=== PATIENT | female | born 1940 | race Caucasian/White ===

== ENCOUNTER → 2023-12-31 10:01 | Outpatient (REF) | payer MEDICARE, BC, SELFPAY ==
[2023-12-31 13:19] LABS: ALT (SGPT) 15 U/L (0-35); AST (SGOT) 21 U/L (14-36); Albumin 4.1 g/dl (3.5-5.0); Alkaline Phosphatase 92 U/L (38-126); Blood Urea Nitrogen 22 mg/dl (7-17); Calcium 9.4 mg/dl (8.4-10.2); Carbon Dioxide 26 mmol/L (22-30); Chloride 105 mmol/L (98-107); Glucose 189 mg/dl (70-99); HDL Cholesterol 73 mg/dl; LDL Cholesterol, Calculated 106 mg/dl; Sodium 136 mmol/L (135-145); Total Cholesterol 199 mg/dl (50-199); Triglyceride 100 mg/dl (10-149); Very Low Density Lipoprotein 20 mg/dl (0-30); eGFR > 60.00
[2023-12-31 13:29] LABS: Glycohemoglobin (HgbA1c) 8.2 % (4.0-5.6)
[2023-12-31 16:21] LABS: Microalbumin, Random Urine 5.4 mg/dl (0.6-1.7); Microalbumin/creatinine Ratio 56.4 mg/g
== END ==
LOC: HWLAB 10:01
PROVIDERS: ATTENDING PHYSICIAN Nurse Practitioner Family
DX: E11.21 Type 2 diabetes mellitus with diabetic nephropathy (principal); E78.2 Mixed hyperlipidemia; I10 Essential (primary) hypertension; E66.3 Overweight; F32.5 Major depressive disorder, single episode, in full remission
CPT/HCPCS: 36415; 80053; 80061; 82043; 82570; 83036

== ENCOUNTER → 2024-05-12 09:42 | Outpatient (REF) | payer MEDICARE, BC, SELFPAY ==
[2024-05-12 11:10] LABS: % Basophils 0.4 % (0-2); % Immature Granulocytes 0.2 % (0-0.5); % Lymphocytes 27.4 % (20.5-51.1); Absolute Eosinophils 0.1 10^3/uL (0-0.7); Absolute Lymphocytes 1.4 10^3/uL (1.2-3.4); Absolute Monocytes 0.4 10^3/uL (0.1-0.6); Absolute Neutrophils 3.4 10^3/uL (1.4-6.5); Hematocrit 40.6 % (37.0-47.0); Hemoglobin 14.2 g/dL (12.0-16.0); Mean Corpuscular Hgb 31.3 pg (27.0-31.0); Mean Corpuscular Volume 89.6 fL (81.0-99.0); Mean Platelet Volume 10.4 fL (7.4-10.4); Nucleated Red Blood Cells % 0 %; Platelet Count 211 10^3/uL (130-400); Red Blood Cell Count 4.53 10^6/uL (4.20-5.40); Red Cell Dist. Width 13.3 % (11.5-14.5); White Blood Cell Count 5.3 10^3/uL (4.8-10.8)
[2024-05-12 11:25] LABS: Blood Urea Nitrogen 23 mg/dl (7-17); Calcium 9.8 mg/dl (8.4-10.2); Carbon Dioxide 26 mmol/L (22-30); Chloride 104 mmol/L (98-107); Glucose 145 mg/dl (70-99); Potassium 4.1 mmol/L (3.5-5.1); Sodium 139 mmol/L (135-145); eGFR > 60.00
== END ==
LOC: REG 09:42
PROVIDERS: ATTENDING PHYSICIAN Orthopaedic Surgery; FAMILY PHYSICIAN Family Medicine
DX: Z01.818 Encounter for other preprocedural examination (principal)
CPT/HCPCS: 36415; 80048; 85025; 93005

== ENCOUNTER → 2024-07-05 10:22 | Outpatient (REF) | payer MEDICARE, BC, SELFPAY ==
[2024-07-05 12:17] LABS: % Basophils 0.4 % (0-2); % Eosinophils 0.7 % (0-6); % Immature Granulocytes 0.2 % (0-0.5); % Lymphocytes 21.3 % (20.5-51.1); % Monocytes 8.9 % (1.7-9.3); % Neutrophils 68.5 % (42.2-75.2); Absolute Lymphocytes 1.2 10^3/uL (1.2-3.4); Absolute Monocytes 0.5 10^3/uL (0.1-0.6); Absolute Neutrophils 3.7 10^3/uL (1.4-6.5); Hematocrit 41.1 % (37.0-47.0); Hemoglobin 14.5 g/dL (12.0-16.0); Mean Corp Hgb Conc. 35.3 g/dL (33.0-37.0); Mean Corpuscular Hgb 31.3 pg (27.0-31.0); Mean Corpuscular Volume 88.8 fL (81.0-99.0); Nucleated Red Blood Cells % 0 %; Platelet Count 238 10^3/uL (130-400); Red Blood Cell Count 4.63 10^6/uL (4.20-5.40); Red Cell Dist. Width 12.9 % (11.5-14.5); White Blood Cell Count 5.4 10^3/uL (4.8-10.8)
[2024-07-05 12:53] LABS: Glycohemoglobin (HgbA1c) 6.5 % (4.0-5.6)
[2024-07-05 13:00] LABS: ALT (SGPT) 17 U/L (0-35); AST (SGOT) 22 U/L (14-36); Albumin 4.4 g/dl (3.5-5.0); Alkaline Phosphatase 85 U/L (38-126); Blood Urea Nitrogen 19 mg/dl (7-17); Calcium 9.7 mg/dl (8.4-10.2); Carbon Dioxide 28 mmol/L (22-30); Chloride 103 mmol/L (98-107); Glucose 167 mg/dl (70-99); Potassium 4.7 mmol/L (3.5-5.1); Sodium 144 mmol/L (135-145); Total Bilirubin 0.9 mg/dl (0.2-1.3); eGFR > 60.00
[2024-07-05 13:29] LABS: Microalbumin, Random Urine 1.3 mg/dl (0.6-1.7); Microalbumin/creatinine Ratio 36.7 mg/g
== END ==
LOC: HWLAB 10:22
PROVIDERS: ATTENDING PHYSICIAN Nurse Practitioner Family
DX: I10 Essential (primary) hypertension (principal); F32.5 Major depressive disorder, single episode, in full remission; E11.21 Type 2 diabetes mellitus with diabetic nephropathy; F03.B0 Unspecified dementia, moderate, without behavioral disturbance, psychotic disturbance, mood disturbance, and anxiety
CPT/HCPCS: 36415; 80053; 82043; 82570; 83036; 85025

== ENCOUNTER 2024-10-22 01:52 | Inpatient (IN) | payer MEDICARE, BC, SELFPAY ==
[2024-10-21 22:22] VITALS: BP 138/73; BMI 21.1
[2024-10-21 23:24] VITALS: BP 151/69
--- NOTE | 2024-10-21 23:32 | ED.GENMED ---
History of Present Illness
General
Chief Complaint: Fall
Time Seen by Provider: 10/21/24 23:05
History of Present Illness
History of Present Illness:
83-year-old female presents to the emergency department for evaluation after a fall, was walking with her cane outside her home and fell into the snow landing on her right hip. She was able to get up by herself and was apparently able to ambulate
somewhat but complains of right hip pain. Has a history of dementia. Does not take any anticoagulants. Denies any other complaints at this time
Review of Systems
Review of Systems
Allergies reviewed?: Yes
All Other Systems: ROS reviewed and negative except as documented in HPI and ROS
Phy Exam
Physical Exam
Physical Exam:
GEN: Well appearing, NAD, WDWN
HEENT: Oral mucosa moist, no scleral icterus
Cardiac: Regular rate
Lung: No respiratory distress, no tachypnea
MSK: No gross deformity or injuries. Tenderness to the R lateral hip. ROM not assessed
Skin: Good color, no pallor or jaundice, no rashes
Neuro: AO x3, moves all extremities freely
Psych: Calm, cooperative
Course
Orders/Labs/Results
Orders:
Orders
10/21/24 22:33
CR Hip - RT w/wo Pel 2-3 Vw* Urgent
Comment:
Reason For Exam: fall, R hip pain
Include a pelvis x-ray?: Yes
10/21/24 23:40
Complete Blood Count/With Diff Urgent
Comprehensive Metabolic Panel Urgent
10/22/24 00:03
CT Lower Ext W/o Iv Cont Rt Urgent
Reason For Exam: R hip injury/fx
10/22/24 00:46
EKG [Electrocardiogram (*1)] Urgent
Reason for Study: PreOp
10/22/24 00:56
Admit/Transfer Patient As Directed
Co-Sign Provider:
Level of Care: Inpatient admission
Assign to:: Medical/Surgical
Physician / Group: Hany
Diagnosis: R Hip Fracture
Reason for Hospitalization: R Hip Fracture
Expected length of stay greater than two midnights?: Yes
ELOS- Estimated Length of Stay in days: 3
I certify the patient meets the requirements for IP care: Yes
PRN Pain Medication Management As Directed
May give lesser potent ordered pain med per pt: Yes
preference::
Protocol:: Medication orders for pain may be administered in a
manner that supports deferring to patient preference
when the pt is:
- Requesting an ordered lesser potent pain medication.
Least to most potent pain medications are defined
as: acetaminophen < NSAID < tramadol < opioids
(morphine, oxycodone, hydromorphone).
- Requesting a lesser dose of the same medication IF
ORDERED.
- Requesting a less intrusive route of administration
if both routes are prescribed by the provider (PO <
IV).
10/22/24 00:57
Code Status As Directed
Resuscitation Status: Do not resuscitate
Reached after discussion with pt or family/Healthcare POA: Yes
DNR Bracelet Application ONCE
10/22/24 02:11
0.9% Sodium Chloride 1000 ml [Nss] 1,000 ml IV 80 mls/hr
Acetaminophen [Tylenol] 650 mg PO Q4HPRN PRN
Dextrose 50%-Water [Dextrose 50% Syringe] 12.5 grams IV [id number] PRN
Glucagon [GlucaGen] 1 mg IM PRN PRN
Morphine Sulfate 2 mg IV Q4HPRN PRN
Polyethylene Glycol Powder [Miralax] 17 grams PO DAILY PRN
10/22/24 02:11
Activity As Directed
Activity Level: Bedrest
Bedside Glucose Monitoring As Directed
Frequency: AC&HS
Additional Instructions:: Change to q6h if pt on TPN, tube feeding or not eating
I/O [Intake/ Output] As Directed
Frequency: Per unit guidelines
Pneumatic Compression Sleeves As Directed
Type: Knee high
Vital Signs As Directed
Frequency: Per unit guidelines
Oxygen Therapy [O2 Therapy] [RESP] Routine
Titrate/Wean O2 to maintain O2 sat greater than (%): 94
DX Deep Vein Thrombosis Video Routine
10/22/24 Breakfast
NPO
Allow oral meds: Yes
Allow clear liquids: Sips of Clears
Basic Metabolic Panel IN AM
Complete Blood Count/No Diff IN AM
Glycohemoglobin (HgbA1c) IN AM
10/22/24 07:30
Insulin Aspart Corrective Low [Novolog Flexpen-Low Resistance] See Protocol SC AC
10/22/24 08:00
Docusate Sodium [Colace] 100 mg PO BID
Losartan [Cozaar] 25 mg PO DAILY
Sertraline HCl [Zoloft] 50 mg PO DAILY
10/22/24 22:00
Sennosides [Senokot] 17.2 mg PO HS
Abnormal Lab Results
10/21/24
23:40
RBC 4.16 L 10^6/uL
(4.20-5.40)
Hct 36.6 L %
(37.0-47.0)
Absolute Neuts (auto) 7.9 H 10^3/uL
(1.4-6.5)
Absolute Lymphs (auto) 0.6 L 10^3/uL
(1.2-3.4)
Absolute Monos (auto) 0.9 H 10^3/uL
(0.1-0.6)
Neutrophils % 83.3 H %
(42.2-75.2)
Lymphocytes % 6.6 L %
(20.5-51.1)
Monocytes % 9.7 H %
(1.7-9.3)
BUN 30 H mg/dl
(7-17)
Glucose 343 H mg/dl
(70-99)
10/21/24 23:40
10/21/24 23:40
Vital Signs
Initial and Last Documented VS:
Initial Vital Signs
Temp Pulse Resp BP Pulse Ox
98.8 F 96 18 138/73 100
10/21/24 22:22 10/21/24 22:22 10/21/24 22:22 10/21/24 22:22 10/21/24 22:22
Last Documented Vital Signs
Temp Pulse Resp BP Pulse Ox
98.8 F 94 16 148/80 98
10/21/24 22:22 10/22/24 02:00 10/22/24 02:00 10/22/24 02:00 10/22/24 02:00
MDM/Problems Addressed
MDM/Problems Addressed:
Right hip fracture identified on plain films. Reviewed with orthopedics who requested CT for further clarification. Will be admitted to the hospitalist service for further management
*Critical Care Note
Total Time (30-74mins, 75-104mins- exclusive of procedures): Not Applicable
ED Attending Note
-
Portions of this chart may have been created with voice recognition software.� Occasional wrong word or��sound alike� substitutions may have occurred due to the inherent limitations of voice recognition software.
Discharge Plan
Departure
Patient Disposition: Admit
Date of Disposition: 10/22/24
Time of Disposition: 00:31
Admit to: Med/Surg
Presentation/result/management discussed w/ accepting MD/DO: Hospitalist
Discharge Problem:
Fracture of right hip
Interventions
Interventions:
*Risk Screen - Suicide Last Done: 10/21/24 22:22
*General Assessment Last Done: 10/21/24 22:22
*Neglect/Abuse Screening Last Done: 10/21/24 22:22
ED- Fall Risk Assessment Last Done: 10/22/24 02:51
*ED COVID-19 Vaccine History Last Done: 10/21/24 22:22
*Nursing Disposition Last Done: 10/22/24 02:51
ED-Musculoskeletal Assessment Last Done: 10/21/24 22:46
ED- Neurological Assessment Last Done: 10/21/24 22:46
ED-Skin Assessment Last Done: 10/21/24 22:46
[2024-10-21 23:58] LABS: % Basophils 0.1 % (0-2); % Immature Granulocytes 0.3 % (0-0.5); % Lymphocytes 6.6 % (20.5-51.1); % Monocytes 9.7 % (1.7-9.3); % Neutrophils 83.3 % (42.2-75.2); Absolute Lymphocytes 0.6 10^3/uL (1.2-3.4); Absolute Monocytes 0.9 10^3/uL (0.1-0.6); Absolute Neutrophils 7.9 10^3/uL (1.4-6.5); Hematocrit 36.6 % (37.0-47.0); Hemoglobin 12.6 g/dL (12.0-16.0); Mean Corp Hgb Conc. 34.4 g/dL (33.0-37.0); Mean Corpuscular Hgb 30.3 pg (27.0-31.0); Mean Platelet Volume 10.3 fL (7.4-10.4); Nucleated Red Blood Cells % 0 %; Platelet Count 188 10^3/uL (130-400); Red Blood Cell Count 4.16 10^6/uL (4.20-5.40); Red Cell Dist. Width 13.4 % (11.5-14.5); White Blood Cell Count 9.4 10^3/uL (4.8-10.8)
[2024-10-22] VITALS (18 sets, daily range): BP systolic 89–163; BP diastolic 44–82; BMI 20.1
[2024-10-22 00:14] LABS: ALT (SGPT) 20 U/L (0-35); AST (SGOT) 25 U/L (14-36); Albumin 4.1 g/dl (3.5-5.0); Alkaline Phosphatase 93 U/L (38-126); Blood Urea Nitrogen 30 mg/dl (7-17); Calcium 8.8 mg/dl (8.4-10.2); Carbon Dioxide 24 mmol/L (22-30); Chloride 102 mmol/L (98-107); Estimated Creatinine Clearance 40 ml/min; Glucose 343 mg/dl (70-99); Potassium 3.8 mmol/L (3.5-5.1); Sodium 137 mmol/L (135-145); Total Bilirubin 0.6 mg/dl (0.2-1.3); Total Protein 6.5 g/dl (6.3-8.2); eGFR 55.21
--- NOTE | 2024-10-22 00:58 | HPS.HSE ---
Family Physician
-
Family Physician: Bryan Oliva, DO
Chief Complaint
-
R Hip pain s/p fall
History of Present Illness
Patient is an 83y F with PMH significant for hypertension, DM-II and dementia who presents to ED complaining of R hip pain s/p fall. Patient states that she was walking outside of her home with a cane when she slipped on some ice / snow and fell
- landing on her R hip / buttocks. Patient was able to get up and has been ambulating since the fall - but has noted significant pain in the R hip / groin with weight bearing / ambulation. Patient denies any head injury / trauma. She denies any
prodrome of lightheadedness, dizziness, chest pain or dyspnea prior to the fall.
Patient has a long history of R hip discomfort and had been evaluated by Dr. Staples previously for possible SHAILESH - ultimately this did not proceed.
Patient denies any personal history of GA, CVA, etc. No known history of complications related to surgery or anesthesia.
Medical History
Past Medical History
Past Medical History: Reports Other
Additional Past Medical History:
Hypertension
DM-II
Osteoarthritis
Depression
Dementia
Past Surgical History: Reports Other
Additional Past Surgical History:
BSO
Social History
Tobacco: Non-smoker
Alcohol: Occasional
Drug: None
Personal:
Family History
Family History: Not pertinent
Allergies / Home Medications
Allergies reflects when Allergies were last updated in [facility].
Home Medications with original date entered in [facility]
Allergy/Medication List:
Allergies
Allergy/AdvReac Type Severity Reaction Status Date / Time
lisinopril Allergy Tongue Verified 10/21/24 23:28
Swelling
penicillin G Allergy Unknown Unverified 10/21/24 23:28
Penicillins Allergy Unknown Unverified 10/21/24 23:28
Sulfa (Sulfonamide Allergy Unknown Verified 10/21/24 23:28
Antibiotics)
Home Medications
losartan 25 mg tablet 25 mg PO DAILY 10/21/24
semaglutide 0.25 mg or 0.5 mg (2 mg/3 mL) subcutaneous pen injector (Ozempic) 0.5 mg SC QWEEK 10/21/24
sertraline 50 mg tablet 50 mg PO DAILY 10/21/24
Review of Systems
-
History Source: Patient
A 12 point ROS was completed and negative except as noted: Yes
Constitutional: Denies Fever or Chills
Respiratory: Denies Cough or Trouble Breathing
Cardiac: Denies Chest Pain or Palpitations
Abdomen/GI: Denies Abdominal Pain, Nausea, Vomiting or Diarrhea
: Denies Dysuria or Frequency
Musculoskeletal: Reports Joint Pain; Denies Edema
Neurological: Denies Dizzy or Headache
Psych: Denies Depression or Anxiety
Physical Exam
Vital Signs
Vital Signs
Temp Pulse Resp BP Pulse Ox
98.8 F 103 16 146/69 98
10/21/24 22:22 10/22/24 00:00 10/22/24 00:00 10/22/24 00:00 10/22/24 00:00
Physical Exam
General: Other (83y F in no acute distress.)
HEENT: Moist mucous membranes and PERRLA
Respiratory: Clear; No Wheezes, Rales or Rhonchi
Cardiac: S1/S2 and Regular Rhythm; No Murmur
GI: Soft, Non Tender, Non Distended and Normal Bowel Sounds
Musculoskeletal: No Clubbing, No Cyanosis and Other (RLE slightly shortened. No edema.)
Neuro: Awake and Alert; No Oriented
Laboratory Results
-
10/21/24 23:40
10/21/24 23:40
Laboratory Results
Total Bilirubin 0.6 mg/dl (0.2-1.3) 10/21/24 23:40
AST 25 U/L (14-36) 10/21/24 23:40
ALT 20 U/L (0-35) 10/21/24 23:40
Alkaline Phosphatase 93 U/L (38-126) 10/21/24 23:40
Impression/Plan
-
A/P: Patient is an 83y F with PMH significant for HTN and DM-II who presents to ED complaining of R hip pain s/p fall at home.
Right Hip Fracture
Osteoarthritis of the Right Hip
- Admit for further evaluation and treatment.
- Pain control, bedrest, NPO after midnight.
- Ortho evaluation in the AM for operative repair discussions.
- Patient is at increased risk for complications related to surgery / anesthesia based primarily on her advanced age.
- No personal history of heart disease, stroke, etc. No prior surgical / anesthesia complications.
- Benefits of planned procedure outweigh the potential risks and patient is OK to proceed without additional pre-op evaluation(s).
- Post-op care per Ortho including pain control, DVT prophylaxis, PT / OT, etc.
Benign Hypertension
- Stable. Continue losartan with holding parameters.
DM-II
- Hyperglycemic on initial labs - likely in part due to acute stress / trauma.
- Hold Ozempic acutely.
- Follow glucose and cover with SSI as needed.
- Update A1C.
Senile Dementia
- Stable. Seems to have very poor short term recall - but is able to describe to me events of this evening / fall and prior evaluation with Ortho re: hip replacement.
- Monitor for acute changes / delirium during hospital stay.
- Continue sertraline for mood.
DVT Prophylaxis: SCDs for now. Post-op per Ortho.
Code Status: DNR
--- NOTE | 2024-10-22 01:24 | EDRN ---
Daughter Gabriela [phone]
[facility] [phone] (cell)
[2024-10-22] MEDS: NSS 1000 IV ×2 (04:00→16:05)
[2024-10-22] MEDS: TYLENOL 650 MG PO ×3 (04:28→22:01)
[2024-10-22 06:16] LABS: Glucose - Point of Care 276 mg/dl (70-99)
--- NOTE | 2024-10-22 06:30 | PTCARENOTE ---
Pt. rec'd into room 2111 from ED AAOx1 (disoriented to place and time), confused at baseline but very pleasant. VSS. Pt. states right hip only hurts with movement. Tylenol given. NPO status maintained for possible OR later today, IVF's started,
Purewick placed. Bed alarm on (pt. has made no attempts thus far).
[2024-10-22] MEDS: NOVOLOG FLEXPEN-LOW RESISTANCE 3 UNITS SC (06:40)
[2024-10-22 08:18] LABS: Hematocrit 34.8 % (37.0-47.0); Mean Corp Hgb Conc. 34.5 g/dL (33.0-37.0); Mean Corpuscular Hgb 30.8 pg (27.0-31.0); Mean Corpuscular Volume 89.2 fL (81.0-99.0); Mean Platelet Volume 11.3 fL (7.4-10.4); Platelet Count 173 10^3/uL (130-400); Red Cell Dist. Width 13.3 % (11.5-14.5); White Blood Cell Count 6.9 10^3/uL (4.8-10.8)
[2024-10-22] MEDS: COLACE PO (08:25)
[2024-10-22] MEDS: ZOLOFT PO (08:25)
[2024-10-22] MEDS: COZAAR 25 MG PO (08:25)
[2024-10-22] MEDS: ANCEF 10 IV (08:26)
[2024-10-22 08:34] LABS: Blood Urea Nitrogen 25 mg/dl (7-17); Calcium 8.9 mg/dl (8.4-10.2); Carbon Dioxide 26 mmol/L (22-30); Chloride 104 mmol/L (98-107); Estimated Creatinine Clearance 43 ml/min; Glucose 272 mg/dl (70-99); Potassium 3.7 mmol/L (3.5-5.1); Sodium 139 mmol/L (135-145); eGFR > 60.00
--- NOTE | 2024-10-22 09:32 | W.PN.HOSP.TC ---
Today's Communication/Plan
-
OR today
Assessment / Plan
Assessment / Plan
83y F with PMH significant for HTN and DM-II who presents to ED complaining of R hip pain s/p fall at home.
Gen: NAD, AAOx3.
Eyes: EOMI, PERRLA, no scleral icterus.
Neck: supple.
CV: RRR, +S1/S2, no m/r/g.
Resp: CTAB, no rales, wheezes, or rhonchi.
Abd: +BS, soft, NT, ND
Skin: No rashes.
Neuro: CN 2-12 intact, non-focal.
Psych: Normal mood and affect.
CT RLE: Intertrochanteric right femur fracture. Mild L5 compression fracture, age indeterminate. Recommend correlation for any point tenderness in this region.
Acute Right Intertrochanteric Femur Fracture due to trauma and underlying OA R hip:
-case discussed with Dr. Mackay, for OR this AM
-will defer post-op DVT proph to ortho
-pain control
Other problems:
Essential Hypertension: cont losartan
DM2: Holding home Ozempic, SSI/accuchecks
Dementia, likely Alzheimer's type: cont Zoloft
DVT Prophylaxis: SCDs for now. Post-op per Ortho.
Code Status: DNR
Anticipated Discharge: Within 24 hours
Subjective/Interval History
-
Date of Service: October 22, 2024
No new complaints.
Objective Data
-
Labs:
Laboratory Results
10/21/24 10/22/24
23:40 06:36
WBC 9.4 6.9
Hgb 12.6 12.0
Hct 36.6 L 34.8 L
Plt Count 188 173
Sodium 137 139
Potassium 3.8 3.7
Chloride 102 104
Carbon Dioxide 24 26
BUN 30 H 25 H
Creatinine 1.0 0.9
Glucose 343 H 272 H
Calcium 8.8 8.9
Total Bilirubin 0.6
AST 25
ALT 20
Alkaline Phosphatase 93
Vital Signs:
Vital Signs
Temp Pulse Resp BP Pulse Ox
97.2 F 81 18 144/70 96
10/22/24 08:07 10/22/24 08:25 10/22/24 08:07 10/22/24 08:25 10/22/24 08:07
--- NOTE | 2024-10-22 10:27 | CON.ORTHO ---
Consultation
-
Date/Time Consultation Requested: 10/21/2024
Date/Time Consultation Performed: 10/22/2024
Requesting Provider: Dr. Antonio Layton
Performing Provider: Ladi Rodriguez PA-C, for Dr. Garcia Mackay
Reason for Consultation: Right hip intertroch fracture
Consultation - Orthopedics
History
HPI: Yohana is an 83-year-old female who slipped and fell on snow yesterday afternoon. Her history was obtained from her , who is her medical power of senior pastor. He states she was unable to stand on her own and he required the help of several
neighbors to help get her back inside. She continued with pain and inability to ambulate, prompting him to take her to [facility]. X-rays were taken and demonstrated evidence of an intertrochanteric fracture. A CT scan was also ordered
to better visualize the fracture pattern and again confirmed the presence of a comminuted, nondisplaced intertrochanteric fracture. On exam, Yohana seems very pleasant, but does have a history of dementia. She denied any specific pain at rest. She
does have a history of right hip pain for which she was going to undergo a right total hip arthroplasty with Dr. Staples in April 2024. Her family did not believe she would be able to follow the hip precautions postoperatively, so surgery was not
pursued.
Past medical history: Significant for hypertension, DM type II, and dementia.
Past surgical history: Significant for BSO.
Social history: Lives at home with . Denies tobacco use. Occasional alcohol consumption.
Review of systems: Not able to obtain due to mental status.
Allergies / Home Medications
Allergy/AdvReac Type Severity Reaction Status Date / Time
lisinopril Allergy Tongue Verified 10/21/24 23:28
Swelling
penicillin G Allergy Unknown Unverified 10/21/24 23:28
Penicillins Allergy Unknown Unverified 10/21/24 23:28
Sulfa (Sulfonamide Allergy Unknown Verified 10/21/24 23:28
Antibiotics)
�Medication �Instructions �Recorded
losartan 25 mg tablet 25 mg PO DAILY 10/21/24
semaglutide 0.25 mg or 0.5 mg (2 0.5 mg SC QWEEK 10/21/24
mg/3 mL) subcutaneous pen injector
(Ozempic)
sertraline 50 mg tablet 50 mg PO DAILY 10/21/24
Vital Signs / Lab Results
Temp Pulse Resp BP Pulse Ox
97.2 F 81 18 144/70 96
10/22/24 08:07 10/22/24 08:25 10/22/24 08:07 10/22/24 08:25 10/22/24 08:07
10/22/24 06:36
10/22/24 06:36
Physical examination:
General: Well-developed, well-nourished female in no acute distress at rest. Oriented to self.
HEENT: Atraumatic, normocephalic, neck supple.
Heart: Regular rate and rhythm.
Lungs: Nonlabored breathing on room air, no audible wheezing.
Right hip: Minimal swelling or ecchymosis present. Tenderness to palpation over greater trochanter. Range of motion not tested due to known fracture. Calf is soft and nontender to palpation. Neurovascularly intact, able to dorsiflex and
plantarflex ankle without difficulty.
Radiographic studies:
X-rays of the right hip from 10/21/2024 shows evidence of a comminuted intratrochanteric fracture. There is advanced arthritis of the right hip and moderate of the left.
CT scan of the right hip demonstrated a comminuted, essentially nondisplaced intertrochanteric fracture of the proximal femur.
Assessment / Plan
Assessment: Right hip intertrochanteric fracture.
Plan: Unfortunately, Yohana sustained a right hip intertrochanteric fracture during a fall yesterday. I reached out to her to discuss both surgical and nonsurgical interventions going forward. At this time, recommendation is to proceed with
surgical intervention in the form of an open reduction, internal fixation of the right hip with gamma nail. The procedure was explained in detail along with the associated risks, benefits, and recovery process. Surgical consent was obtained over
the phone with her , [facility] Gutierrez, who is her medical power of senior pastor. The plan will be to proceed to the OR later this morning under the direction of Dr. Mackay. Type and screen was ordered. Antibiotics on-call to the OR. Patient
has been n.p.o. since midnight. Right hip was marked as correct surgical site. All questions were answered and patient and were in agreement with treatment recommendations going forward.
Patient evaluated with Dr. Mackay
--- NOTE | 2024-10-22 10:33 | CM ---
Reviewed the chart notes and spoke with the patient at the bedside. Patient resides with spouse in a two story home with no steps to enter. The Patient usually uses a cane with ambulation. Patient reports no VN or SNF in the past. Patient could
not confirm pharmacy, but did confirm PCP was Dr. Rolan Tidwell. Patient expected to go to OR today for hip fx repair. CM continues to be available to patient/family and is monitoring medical plan for needs at discharge.
Plan: Discharge will most likely be SNF/rehab prior to transitioning back to home.
[2024-10-22 11:02] LABS: Glucose - Point of Care 223 mg/dl (70-99)
[2024-10-22 11:39] LABS: Glycohemoglobin (HgbA1c) 7.5 % (4.0-5.6)
[2024-10-22] MEDS: NOVOLOG FLEXPEN-LOW RESISTANCE SC (12:00)
[2024-10-22 13:24] LABS: Glucose - Point of Care 203 mg/dl (70-99)
[2024-10-22] MEDS: ZOFRAN 4 MG IV (14:19)
[2024-10-22] MEDS: SUBLIMAZE 25 MCG IV (14:26)
--- NOTE | 2024-10-22 15:07 | PTCARENOTE ---
Patient returned back to unit postoperatively 15:08, confused at baseline. Reports R hip pain.
[2024-10-22] MEDS: ASPIRIN 325 MG PO (16:05)
[2024-10-22 16:52] LABS: Glucose - Point of Care 232 mg/dl (70-99)
[2024-10-22] MEDS: NOVOLOG FLEXPEN-LOW RESISTANCE 2 UNITS SC (18:04)
[2024-10-22] MEDS: ANCEF 5 IV (19:41)
[2024-10-22] MEDS: MORPHINE SULFATE 2 MG IV (19:42)
[2024-10-22] MEDS: COLACE 100 MG PO (19:42)
[2024-10-22] MEDS: SENOKOT 17.2 MG PO (22:01)
[2024-10-22 22:55] LABS: Glucose - Point of Care 282 mg/dl (70-99)
[2024-10-23] MEDS: MORPHINE SULFATE 2 MG IV (01:23)
[2024-10-23] MEDS: NSS 1000 IV (01:27)
[2024-10-23] MEDS: ANCEF 5 IV (04:13)
[2024-10-23 07:14] VITALS: BP 135/75
--- NOTE | 2024-10-23 07:15 | W.PN.HOSP.TC ---
Today's Communication/Plan
-
d/c
Assessment / Plan
Assessment / Plan
83y F with PMH significant for HTN and DM-II who presents to ED complaining of R hip pain s/p fall at home.
Gen: NAD, awake and alert, NCAT
Eyes: EOMI, PERRLA, no scleral icterus.
Neck: supple.
CV: Remains RRR, +S1/S2, no m/r/g.
Resp: Remains CTAB, no rales, wheezes, or rhonchi.
Abd: +BS, soft, NT, ND
Skin: No rashes.
Neuro: CN 2-12 intact, non-focal.
Psych: Normal mood and affect.
CT RLE: Intertrochanteric right femur fracture. Mild L5 compression fracture, age indeterminate. Recommend correlation for any point tenderness in this region.
Acute Right Intertrochanteric Femur Fracture due to trauma and underlying OA R hip:
-case discussed with Dr. Mackay, s/p gamma nail 10/22/24
-ASA for post-op DVT proph as per ortho
-pain control
-Note, anemia is a combination of acute blood loss anemia due to surgery and dilution from IV fluids
Other problems:
Essential Hypertension: cont losartan
DM2: Holding home Ozempic, a1c 7.5%. SSI/accuchecks
Dementia, likely Alzheimer's type: cont Zoloft
DVT Prophylaxis: ASA as per Ortho.
Code Status: DNR
Medically cleared for discharge. Case management aware (discussed with MAEGAN Jameson).
Anticipated Discharge: Today
Subjective/Interval History
-
Date of Service: October 23, 2024
Denies chest pain or shortness of breath. Reports pain in her right hip.
Objective Data
-
Vital Signs:
Vital Signs
Temp Pulse Resp BP Pulse Ox
98.7 F 97 16 131/67 100
10/22/24 23:32 10/22/24 23:32 10/22/24 23:32 10/22/24 23:32 10/22/24 23:32
I&O
10/22/24 10/23/24 10/24/24
06:59 06:59 06:59
Intake Total 2400 / 2400
Balance 2400 / 2400
[2024-10-23 07:44] LABS: Glucose - Point of Care 238 mg/dl (70-99)
--- NOTE | 2024-10-23 07:52 | W.PN.ORTHO ---
Today's Communication / Plan
-
83-year-old female POD #1 Right Hip Gamma Nail 10/22/[address] Mackay.
- WBAT RLE with use of walker for assistance.
- PT/OT.
- Aspirin 325mg once daily x 4 weeks for DVT Prophylaxis.
- CM regarding D/C planning. Will likely require a SNF upon discharge.
- Dressings intact for 7-10 days post-op. [place] removed at 2 weeks post-op. Repeat x-ray in 4 weeks.
- Orthopedic surgery will continue to follow.
Assessment
.
Distal Motor Intact: Yes
Dressing:
Clean, dry and intact.
Assessment:
83-year-old female POD #1 Right Hip Gamma Nail 10/22/[address] Mackay.
- WBAT RLE with use of walker for assistance.
- PT/OT.
- Aspirin 325mg once daily x 4 weeks for DVT Prophylaxis.
- CM regarding D/C planning. Will likely require a SNF upon discharge.
- Dressings intact for 7-10 days post-op. [place] removed at 2 weeks post-op. Repeat x-ray in 4 weeks.
- Orthopedic surgery will continue to follow.
Plan
.
Surgery / Date: 10/22/24 Right hip gamma nail - Dr. Mackay
DVT Prophylaxis: Aspirin
Activity:
Out of bed.
PT/OT
Discharge Plan: SNF
Subjective
.
.:
Patient resting comfortably in bed. Reports some discomfort in her right hip.
Vital Signs and Labs
.
Vital Signs and Labs:
Temp Pulse Resp BP Pulse Ox
98.7 F 97 16 131/67 100
10/22/24 23:32 10/22/24 23:32 10/22/24 23:32 10/22/24 23:32 10/22/24 23:32
Physical Exam
-
Right hip/thigh/knee: Dressings c/d/i with some mild drainage. Mild diffuse swelling, more pronounced around the knee. ROM with mild discomfort in the hip. No pain with knee ROM. Calf soft and non tender to palpation. N/v intact distally.
[2024-10-23] MEDS: TYLENOL 650 MG PO ×2 (08:16→16:05)
[2024-10-23] MEDS: COLACE 100 MG PO ×2 (08:17→20:56)
[2024-10-23] MEDS: NOVOLOG FLEXPEN-LOW RESISTANCE 2 UNITS SC (08:17)
[2024-10-23] MEDS: ASPIRIN 325 MG PO (08:18)
[2024-10-23] MEDS: ZOLOFT 50 MG PO (08:18)
[2024-10-23] MEDS: COZAAR 25 MG PO (08:18)
[2024-10-23 08:19] LABS: Blood Urea Nitrogen 16 mg/dl (7-17); Calcium 7.8 mg/dl (8.4-10.2); Carbon Dioxide 27 mmol/L (22-30); Chloride 105 mmol/L (98-107); Estimated Creatinine Clearance 56 ml/min; Glucose 220 mg/dl (70-99); Potassium 3.9 mmol/L (3.5-5.1); Sodium 139 mmol/L (135-145); eGFR > 60.00
[2024-10-23 09:00] LABS: Hematocrit 27.7 % (37.0-47.0); Hemoglobin 9.5 g/dL (12.0-16.0); Mean Corp Hgb Conc. 34.3 g/dL (33.0-37.0); Mean Corpuscular Hgb 30.7 pg (27.0-31.0); Mean Corpuscular Volume 89.6 fL (81.0-99.0); Mean Platelet Volume 10.3 fL (7.4-10.4); Platelet Count 143 10^3/uL (130-400); Red Blood Cell Count 3.09 10^6/uL (4.20-5.40); Red Cell Dist. Width 13.6 % (11.5-14.5); White Blood Cell Count 5.8 10^3/uL (4.8-10.8)
[2024-10-23 09:06] VITALS: BP 110/60; PULSE 104; O2SAT 97
[2024-10-23 11:50] LABS: Glucose - Point of Care 324 mg/dl (70-99)
[2024-10-23] MEDS: NOVOLOG FLEXPEN-LOW RESISTANCE 4 UNITS SC (11:53)
[2024-10-23] MEDS: ULTRAM 50 MG PO ×2 (11:57→21:22)
--- NOTE | 2024-10-23 15:30 | CM ---
Referral to [facility] sent via [facility] with [facility] at request of family.
[2024-10-23 16:00] VITALS: BP 100/59
[2024-10-23 16:56] LABS: Glucose - Point of Care 370 mg/dl (70-99)
[2024-10-23] MEDS: NOVOLOG FLEXPEN-LOW RESISTANCE 5 UNITS SC (17:31)
[2024-10-23] MEDS: SENOKOT 17.2 MG PO (21:20)
[2024-10-23 22:15] LABS: Glucose - Point of Care 246 mg/dl (70-99)
[2024-10-23 23:24] VITALS: BP 119/68
[2024-10-24] MEDS: ULTRAM 50 MG PO ×3 (03:45→20:31)
[2024-10-24 06:45] LABS: Hematocrit 26.5 % (37.0-47.0); Hemoglobin 8.7 g/dL (12.0-16.0); Mean Corp Hgb Conc. 32.8 g/dL (33.0-37.0); Mean Corpuscular Hgb 30.2 pg (27.0-31.0); Mean Platelet Volume 11.3 fL (7.4-10.4); Platelet Count 157 10^3/uL (130-400); Red Blood Cell Count 2.88 10^6/uL (4.20-5.40); Red Cell Dist. Width 13.7 % (11.5-14.5); White Blood Cell Count 6.7 10^3/uL (4.8-10.8)
[2024-10-24 07:06] LABS: Blood Urea Nitrogen 22 mg/dl (7-17); Carbon Dioxide 26 mmol/L (22-30); Chloride 103 mmol/L (98-107); Estimated Creatinine Clearance 49 ml/min; Glucose 216 mg/dl (70-99); Sodium 136 mmol/L (135-145); eGFR > 60.00
[2024-10-24 07:12] LABS: Potassium 3.9 mmol/L (3.5-5.1)
[2024-10-24 08:05] VITALS: BP 111/61
[2024-10-24] MEDS: ZOLOFT 50 MG PO (08:46)
[2024-10-24] MEDS: TYLENOL 650 MG PO (08:46)
[2024-10-24] MEDS: COZAAR 25 MG PO (08:46)
[2024-10-24] MEDS: ASPIRIN 325 MG PO (08:46)
[2024-10-24] MEDS: COLACE 100 MG PO ×2 (08:46→20:17)
[2024-10-24 08:51] LABS: Glucose - Point of Care 252 mg/dl (70-99)
--- NOTE | 2024-10-24 08:54 | W.PN.ORTHO ---
Today's Communication / Plan
-
Appreciate the hospitalist team in the care of this patient
Disposition likely SNF, appreciate CM
Continue WBAT RLE on walker/assistance
PT/OT
ASA 325mg daily x 4 weeks for DVT ppx
Dressings to remain 7-10 days
Pain control, avoid narcs if possible
Outpatient Ortho follow-up in 2 weeks for staple removal
If jayden removed at SNF 4 weeks Ortho follow-up OK
Orthopaedics to sign off for now. Please reengage with pertinent questions as needed
Assessment
.
Distal Motor Intact: Yes
Dressing:
Dry and intact. Mild strikethrough contained in Aquacel
Assessment:
POD#2 Right gamma nail
Overall doing/feeling well
Calf soft, nontender
DNVI
Plan
.
Surgery / Date: 10/22/24 Right hip gamma nail - Dr. Mackay
DVT Prophylaxis: Aspirin
Activity:
Out of bed. WBAT RLE on walker/assistance
PT/OT
Discharge Plan: SNF (Appreciate CM)
Subjective
.
.:
Patient resting comfortably. Mild right thigh pain
Vital Signs and Labs
.
Vital Signs and Labs:
Lab Results
10/24/24 04:56
10/24/24 04:56
Temp Pulse Resp BP Pulse Ox
98.3 F 106 16 111/61 95
10/24/24 08:05 10/24/24 08:05 10/24/24 08:05 10/24/24 08:05 10/24/24 08:05
[2024-10-24 09:38] LABS: Iron < 20 ug/dl (37-170)
[2024-10-24 09:48] LABS: Total Iron Binding Capacity 224 ug/dl (265-497)
[2024-10-24] MEDS: NOVOLOG FLEXPEN 3 UNITS SC ×3 (10:14→18:04)
[2024-10-24] MEDS: NOVOLOG FLEXPEN-LOW RESISTANCE 3 UNITS SC ×2 (10:14→18:04)
--- NOTE | 2024-10-24 10:38 | CM ---
Addendum entered by Beti Gonzalez 10/24/24 15:44:
Accepted at [facility] tomorrow
Family updated. Reviewed IMM with family
Transport to be arranged
Plan - transfer to the [facility] tomorrow
R - [phone]
F - [phone]
Addendum entered by Beti Gonzalez 10/24/24 13:00:
Received call from Lamar at [facility] - reviewing referral. Will call with determination
Plan - SNF when bed obtained and medically ready
Original Note:
Chart reviewed
SNF referral sent to [facility] - called Liaison, Lamar [phone], requesting referral review/bed availability, with call back number
No auth required
Plan - SNF when bed obtained and medically ready
--- NOTE | 2024-10-24 11:36 | W.PN.HOSP.TC ---
Today's Communication/Plan
-
await placement to SNF
asa for dvt
oob/pt/ot
IV iron
Assessment / Plan
Assessment / Plan
83y F with PMH significant for HTN and DM-II who presents to ED complaining of R hip pain s/p fall at home.
Gen: NAD, awake and alert, NCAT
Eyes: EOMI, no scleral icterus.
Neck: supple.
CV: Remains RRR, +S1/S2, no m/r/g.
Resp: Remains CTAB, no rales, wheezes, or rhonchi.
Abd: +BS, soft, NT, ND
Skin: No rashes.
Neuro: CN 2-12 intact, non-focal.
Psych: Normal mood and affect.
CT RLE: Intertrochanteric right femur fracture. Mild L5 compression fracture, age indeterminate. Recommend correlation for any point tenderness in this region.
Acute Right Intertrochanteric Femur Fracture due to trauma and underlying OA R hip:
-s/p gamma nail 10/22/24
-ASA for post-op DVT proph as per ortho
-pain control
-Note, anemia is a combination of acute blood loss anemia due to surgery and dilution from IV fluids
Anemia - a combination of acute blood loss anemia due to surgery and dilution from IV fluids and mild iron def component
-no luminal bleeding noted
-low iron and IV iron while here
-trend hgb.
Other problems:
Essential Hypertension: cont losartan
DM2: Holding home Ozempic, a1c 7.5%. SSI/accuchecks
Dementia, likely Alzheimer's type: cont Zoloft
DVT Prophylaxis: ASA as per Ortho.
Code Status: DNR
Medically cleared for discharge. Case management aware
Anticipated Discharge: Today
Subjective/Interval History
-
Date of Service: October 24, 2024
No events overnight
denies hip pain
watching tv
Objective Data
-
Labs:
Laboratory Results
10/24/24
04:56
WBC 6.7
Hgb 8.7 L
Hct 26.5 L
Plt Count 157
Sodium 136
Potassium 3.9
Chloride 103
Carbon Dioxide 26
BUN 22 H
Creatinine 0.8
Glucose 216 H
Calcium 8.0 L
Vital Signs:
Vital Signs
Temp Pulse Resp BP Pulse Ox
98.3 F 106 16 111/61 95
10/24/24 08:05 10/24/24 08:05 10/24/24 08:05 10/24/24 08:05 10/24/24 08:05
I&O
10/23/24 10/24/24 10/25/24
06:59 06:59 06:59
Intake Total 2400 / 2400 1760 / 1760
Balance 2400 / 2400 1760 / 1760
Data Reviewed
-
Total Time Spent with Patient (in minutes): 55
[2024-10-24 12:04] LABS: Folate 6.1 ng/ml (2.76-20); Vitamin B12 320 pg/ml (239-931)
[2024-10-24 12:08] LABS: Glucose - Point of Care 192 mg/dl (70-99)
[2024-10-24] MEDS: NOVOLOG FLEXPEN-LOW RESISTANCE 1 UNITS SC (13:59)
[2024-10-24] MEDS: VITAMIN B-12 1000 MCG PO (14:16)
[2024-10-24] MEDS: FERRLECIT 110 MG IV (14:16)
[2024-10-24 14:49] VITALS: BP 94/60
[2024-10-24 16:04] VITALS: BP 86/49; BP 96/53; PULSE 106; O2SAT 98; O2SAT 99
[2024-10-24 18:02] LABS: Glucose - Point of Care 264 mg/dl (70-99)
--- NOTE | 2024-10-24 18:27 | PTCARENOTE ---
Pt pleasantly confused. OOB to chair for a few hours today - heavy assist x 2 w/ walker. Good appetite. C/o pain in knees but nontender to palpitation. Dressings remain dry and intact.
[2024-10-24] MEDS: SENOKOT 17.2 MG PO (20:17)
[2024-10-24 23:11] VITALS: BP 135/57
[2024-10-24 23:25] LABS: Glucose - Point of Care 290 mg/dl (70-99)
[2024-10-25] MEDS: ZOLOFT 50 MG PO (07:54)
[2024-10-25] MEDS: VITAMIN B-12 1000 MCG PO (07:54)
[2024-10-25] MEDS: COLACE 100 MG PO (07:54)
[2024-10-25] MEDS: COZAAR 25 MG PO (07:54)
[2024-10-25] MEDS: ASPIRIN 325 MG PO (07:59)
[2024-10-25 08:00] VITALS: BP 151/70
[2024-10-25 08:47] LABS: Glucose - Point of Care 382 mg/dl (70-99)
[2024-10-25 09:16] LABS: % Basophils 0.2 % (0-2); % Eosinophils 0.2 % (0-6); % Immature Granulocytes 0.7 % (0-0.5); % Lymphocytes 5.1 % (20.5-51.1); % Monocytes 7.6 % (1.7-9.3); % Neutrophils 86.2 % (42.2-75.2); Absolute Immature Granulocytes 0.1 10^3/uL (0-0.05); Absolute Lymphocytes 0.4 10^3/uL (1.2-3.4); Absolute Monocytes 0.6 10^3/uL (0.1-0.6); Absolute Neutrophils 6.9 10^3/uL (1.4-6.5); Hematocrit 27.5 % (37.0-47.0); Hemoglobin 9.4 g/dL (12.0-16.0); Mean Corp Hgb Conc. 34.2 g/dL (33.0-37.0); Mean Corpuscular Hgb 30.8 pg (27.0-31.0); Mean Corpuscular Volume 90.2 fL (81.0-99.0); Mean Platelet Volume 10.6 fL (7.4-10.4); Nucleated Red Blood Cells % 0 %; Platelet Count 203 10^3/uL (130-400); Red Blood Cell Count 3.05 10^6/uL (4.20-5.40); Red Cell Dist. Width 13.6 % (11.5-14.5)
--- NOTE | 2024-10-25 10:04 | W.PN.HOSP.TC ---
Today's Communication/Plan
-
po asa
po iron
OP ortho f/u
Assessment / Plan
Assessment / Plan
83y F with PMH significant for HTN and DM-II who presents to ED complaining of R hip pain s/p fall at home.
Gen: NAD, awake and alert, NCAT
Eyes: EOMI, no scleral icterus.
Neck: supple.
CV: Remains RRR, +S1/S2, no m/r/g.
Resp: Remains CTAB, no rales, wheezes, or rhonchi.
Abd: +BS, soft, NT, ND
Skin: No rashes.
Neuro: CN 2-12 intact, non-focal.
MSK-R hip gamma nail noted
Psych: Normal mood and affect.
CT RLE: Intertrochanteric right femur fracture. Mild L5 compression fracture, age indeterminate. Recommend correlation for any point tenderness in this region.
Acute Right Intertrochanteric Femur Fracture due to trauma and underlying OA R hip:
-s/p gamma nail 10/22/24
-ASA for post-op DVT proph as per ortho
-pain control
-Note, anemia is a combination of acute blood loss anemia due to surgery and dilution from IV fluids
Anemia - a combination of acute blood loss anemia due to surgery and dilution from IV fluids and mild iron def component
-no luminal bleeding noted
-low iron and IV iron while here and po iron on dc
-trend hgb.
Other problems:
Essential Hypertension: cont losartan
DM2: Holding home Ozempic, a1c 7.5%. SSI/accuchecks
Dementia, likely Alzheimer's type: cont Zoloft
DVT Prophylaxis: ASA as per Ortho.
Code Status: DNR
Medically cleared for discharge. Case management aware
More than 30 minutes spent in discharge including
Final examination of the patient
Summarizing hospital stay
Instructions for continuing care to all relevant caregivers
Preparation of discharge records, prescriptions, and referral forms
Total time spent (in minutes): 50
Anticipated Discharge: Today
Subjective/Interval History
-
Date of Service: October 25, 2024
eating breakfast
denies hip pain
Objective Data
-
Labs:
Laboratory Results
10/25/24
08:33
WBC 8.0
Hgb 9.4 L
Hct 27.5 L
Plt Count 203 D
Vital Signs:
Vital Signs
Temp Pulse Resp BP Pulse Ox
98.9 F 108 18 151/70 94
10/25/24 08:00 10/25/24 08:00 10/25/24 08:00 10/25/24 08:00 10/25/24 08:00
I&O
10/24/24 10/25/24 10/26/24
06:59 06:59 06:59
Intake Total 1760 / 1760 240 / 240
Balance 1760 / 1760 240 / 240
[2024-10-25] MEDS: NOVOLOG FLEXPEN-LOW RESISTANCE 5 UNITS SC ×2 (10:15→12:01)
--- NOTE | 2024-10-25 10:15 | CM ---
Addendum entered by Steffany Lima 10/25/24 10:26:
1 PM transport - [facility] liaison notified
Original Note:
Spoke to hospitalist - discharge today to [facility]
IMM signed yesterday. In chart
[facility] liaison notified at [facility]
transportation forms in chart
PLAN: Discharge to [facility]
R - [phone]
F - [phone]
TRANSPORTATION FORMS ON CHART
[2024-10-25] MEDS: NOVOLOG FLEXPEN 3 UNITS SC ×2 (10:17→12:01)
--- NOTE | 2024-10-25 11:23 | W.DCSUMMARY ---
Discharge Summary
Discharge Data
Date of Admission: 10/22/24
Date of Discharge: 10/25/24
-
Pending Results: No
Hospital Course
83y F with PMH significant for HTN and DM-II who presents to ED complaining of R hip pain s/p fall at home. Patient underwent CT RLE: Intertrochanteric right femur fracture. Mild L5 compression fracture, age indeterminate. Recommend correlation
for any point tenderness in this region. Therapeutic and underwent gamma nail 10/22/2024. Postop patient was on aspirin for DVT prophylaxis. Patient was also found to anemia which was seen multifactorial. Patient received IV iron which
transitioned to p.o. iron at discharge. Patient was eval by physical and Occupational Therapy and be discharged to alf facility. She will require outpatient orthopedic follow-up.
Discharge Plan
-
Patient Disposition: Detention/SNF
Discharge Diagnosis/Procedures: Acute Right Intertrochanteric Femur Fracture due to trauma and underlying OA R hip s/p gamma nail 10/22/24
Anemia - a combination of acute blood loss anemia due to surgery and dilution from IV fluids and mild iron def component
Condition: Fair
Diet: Regular
Activity: With assistance and As tolerated
Driving Restrictions: Not until seen by your Dr
Blood Work: cbc in 1 week via primary doctor
Activity Restrictions/Additional Instructions:
Continue WBAT RLE on walker/assistance
PT/OT
ASA 325mg daily x 4 weeks for DVT ppx
Dressings to remain 7-10 days
Outpatient Ortho follow-up in 2 weeks for staple removal
If jayden removed at SNF 4 weeks Ortho follow-up OK
Referrals:
Garcia Mackay MD [Active] - in two weeks
Bryan Oliva DO [Family Provider] -
Prescriptions:
New
acetaminophen 325 mg Tablet
650 mg PO Q4HPRN PRN (Reason: Mild Pain / Temp > 101) Qty: 20 0RF
aspirin 325 mg Tablet
325 mg PO DAILY 24 Days Qty: 24 0RF
cyanocobalamin (vitamin B-12) 1,000 mcg Tablet
1,000 mcg PO DAILY 30 Days Qty: 30 0RF
tramadol 50 mg Tablet
50 mg PO TIDPRN PRN (Reason: moderate pain) Qty: 9 0RF
docusate sodium 100 mg Capsule
100 mg PO BID 14 Days Qty: 28 0RF
pantoprazole [Protonix] [address] for susp in packet
40 mg PO DAILY Qty: 30 0RF
ferrous sulfate 325 mg (65 mg iron) tablet
325 mg PO DAILY Qty: 30 0RF
Continued
sertraline 50 mg Tablet
50 mg PO DAILY
Ozempic 0.25 mg or 0.5 mg (2 mg/3 mL) Pen Injector
0.5 mg SC QWEEK
losartan 25 mg Tablet
25 mg PO DAILY Qty: 30 0RF
Rx Instructions:
Hold for SBP<105
Discharge Orders:
Discharge Patient (As Directed); Ordered 10/25/24
Ordered By: Ramon Maldonado
Discharge Date and Time
Discharge Date/Time: 10/25/24 12:54
Print Language: AZERI
[2024-10-25 11:35] VITALS: BP 139/80
[2024-10-25 11:50] LABS: Glucose - Point of Care 374 mg/dl (70-99)
[2024-10-25] MEDS: ULTRAM 50 MG PO (12:02)
== END 2024-10-25 12:54 | DRG 481 ==
LOC: 2 SOUTH 01:52
PROVIDERS: Internal Medicine; Physician Assistant; ADMITTING PHYSICIAN Hospitalist; ATTENDING PHYSICIAN Hospitalist; CONSULT PHYSICIAN Specialist; EMERGENCY PHYSICIAN Emergency Medicine; FAMILY PHYSICIAN Student in an Organized Health Care Education/Training Program
PROC: 0QS604Z Reposition Right Upper Femur with Internal Fixation Device, Open Approach (ICD-10-PCS; 2024-10-22)
DX: S72.141A Displaced intertrochanteric fracture of right femur, initial encounter for closed fracture (principal); D62 Acute posthemorrhagic anemia; M48.56XA Collapsed vertebra, not elsewhere classified, lumbar region, initial encounter for fracture; F03.93 Unspecified dementia, unspecified severity, with mood disturbance; M16.11 Unilateral primary osteoarthritis, right hip; W00.0XXA Fall on same level due to ice and snow, initial encounter; D50.9 Iron deficiency anemia, unspecified; E11.65 Type 2 diabetes mellitus with hyperglycemia; I10 Essential (primary) hypertension; Z66 Do not resuscitate; Z88.0 Allergy status to penicillin; F32.A Depression, unspecified
CPT/HCPCS: 73502; 73700; 76000; 80048; 80053; 82607; 82728; 82746; 82962; 83036; 83540; 83550; 85025; 85027; 86850; 86900; 86901; 93005; 97163; 97167; 97530; 97535; 99285; J2916

== ENCOUNTER 2025-02-13 19:07 | Emergency (ER) | payer MEDICARE, BC, SELFPAY ==
[2025-02-13] VITALS (9 sets, daily range): BP systolic 124–150; BP diastolic 65–130; PULSE 91–95; BMI 21.1
--- NOTE | 2025-02-13 19:36 | ED.GENMED ---
History of Present Illness
General
Chief Complaint: Dizziness
Source: patient, spouse and ambulance crew
Exam Limitations: dementia
Time Seen by Provider: 02/13/25 19:15
Nursing documentation reviewed up to this point in time: agreed with
History of Present Illness
History of Present Illness:
Patient presents to ED secondary to sudden onset of nausea and vomiting, while walking back from the bathroom while having dinner this evening at local restaurant. Patient had a glass of wine along with salad and soup when she experienced sudden
need to go to restroom to have bowel movement. Spouse assisted patient to restroom, where patient did not have bowel movement. Patient washed her hands and was walking back to her seat, when she experienced sudden nausea and proceeded to have
vomiting episode. 911 was called at that time. Patient did not lose consciousness. Per report, patient was mildly hypotensive with initial systolic pressure in the 90s. At the time of evaluation ED, patient is still complaining of nausea
sensation. Otherwise, patient has no other complaints. Denies headache. Denies dizziness. Denies chest pain. Denies abdominal pain. Per spouse, who lives with the patient, patient has been at her baseline health recently, including this
morning. Denies recent change in medications or diet. Denies previous history of similar symptoms.
Review of Systems
Review of Systems
Allergies reviewed?: Yes
All Other Systems: ROS reviewed and negative except as documented in HPI and ROS
Constitutional: Reports no symptoms
Respiratory: Reports no symptoms
Cardiac: Reports no symptoms; Denies chest pain or syncope
ABD/GI: Reports nausea and vomiting; Denies abdominal pain
Musculoskeletal: Reports no symptoms
Skin: Reports no symptoms
Neurological: Reports no symptoms; Denies dizzy, headache or weakness
Phy Exam
Physical Exam
Physical Exam:
Physical Exam
General: no apparent distress, not acutely ill. afebrile
Head: nc/at. eomi
Neck: supple. no meningeal signs.
Heart: s1/s2 regular rate and rhythm
Lungs: no acute respiratory distress. clear bilaterally
Abdomen: normal bowel sounds. not tender.
Neuro: alert and oriented x 2. no focal neurological deficits
Skin: no rash
Psychiatric: well kept. interactive and cooperative
Extremities: no edema. no calf tenderness.
Course
Orders/Labs/Results
Orders:
Orders
02/13/25 19:35
Electrocardiogram (*1) Urgent
Reason for Study: Vertigo / Dizzy
CT Head W/o Iv Contrast Urgent
Comment:
Reason For Exam: dizziness
EKG- Treatment ONCE
02/13/25 19:36
Orthostatic VS- Treatment ONCE
Ondansetron Injectable [Zofran] 4 mg IV NOW STA
02/13/25 19:39
Complete Blood Count/With Diff Urgent
Comprehensive Metabolic Panel Urgent
Magnesium Urgent
Troponin I Urgent
Abnormal Lab Results
02/13/25
19:39
BUN 26 H mg/dl
(7-17)
Glucose 252 H mg/dl
(70-99)
02/13/25 19:39
02/13/25 19:39
Vital Signs
Initial and Last Documented VS:
Initial Vital Signs
Temp Pulse Resp BP Pulse Ox
97.9 F 76 17 124/67 99
02/13/25 19:09 02/13/25 19:09 02/13/25 19:09 02/13/25 19:09 02/13/25 19:09
Last Documented Vital Signs
Temp Pulse Resp BP Pulse Ox
97.9 F 92 20 140/68 97
02/13/25 19:09 02/13/25 22:31 02/13/25 22:31 02/13/25 22:00 02/13/25 22:31
MDM/Problems Addressed
MDM/Problems Addressed:
Patient with an unremarkable workup in ED, including blood work, orthostatic vital signs, and CT head. Patient otherwise remains afebrile, hemodynamically stable, and neurologically intact, without any further episodes of vomiting. After
discussion with patient and her daughter at bedside, decision made to discharge patient home, with recommendation for PCP follow-up with any further concerns. Patient's presenting symptoms likely secondary to vasovagal response, likely triggered by
need for bowel movement along with recent alcohol consumption.
*EKG
Interpreted by ED Provider?: Yes
EKG Intrepretation Date: 02/13/25
Heart Rate: 87
Rhythm: sinus
[place]: normal axis
Interval: normal interval
*Critical Care Note
Total Time (30-74mins, 75-104mins- exclusive of procedures): Not Applicable
ED Attending Note
-
Portions of this chart may have been created with voice recognition software.� Occasional wrong word or��sound alike� substitutions may have occurred due to the inherent limitations of voice recognition software.
Discharge Plan
Departure
Patient Disposition: Home (Routine Discharge)
Date of Disposition: 02/13/25
Time of Disposition: 22:39
Patient with high blood pressure during this ER visit?: Yes
Condition: Fair
Discharge Problem:
Vasovagal response
Instructions: Vasovagal Response (DC)
Prescriptions:
No Action
sertraline 50 mg Tablet
50 mg PO DAILY
Ozempic 0.25 mg or 0.5 mg (2 mg/3 mL) Pen Injector
0.5 mg SC QWEEK
acetaminophen 325 mg Tablet
650 mg PO Q4HPRN PRN (Reason: Mild Pain / Temp > 101) Qty: 20 0RF
aspirin 325 mg Tablet
325 mg PO DAILY 24 Days Qty: 24 0RF
cyanocobalamin (vitamin B-12) 1,000 mcg Tablet
1,000 mcg PO DAILY 30 Days Qty: 30 0RF
tramadol 50 mg Tablet
50 mg PO TIDPRN PRN (Reason: moderate pain) Qty: 9 0RF
docusate sodium 100 mg Capsule
100 mg PO BID 14 Days Qty: 28 0RF
pantoprazole [Protonix] [address] for susp in packet
40 mg PO DAILY Qty: 30 0RF
losartan 25 mg Tablet
25 mg PO DAILY Qty: 30 0RF
Rx Instructions:
Hold for SBP<105
ferrous sulfate 325 mg (65 mg iron) tablet
325 mg PO DAILY Qty: 30 0RF
Referrals:
Brea Black CRNP [Family Provider] -
Activity Restrictions/Additional Instructions:
As discussed, please follow-up with your primary care physician with any further concerns.
Interventions
Interventions:
*Risk Screen - Suicide Last Done: 02/13/25 19:30
*General Assessment Last Done: 02/13/25 19:30
*Neglect/Abuse Screening Last Done: 02/13/25 19:30
*ED- Fall Risk Assessment Last Done: 02/13/25 19:30
*ED COVID-19 Vaccine History Last Done: 02/13/25 19:30
*Nursing Disposition Last Done: 02/13/25 23:06
ED- Neurological Assessment Last Done: 02/13/25 19:28
ED- Cardiac Assessment Last Done: 02/13/25 19:10
ED Swallowing Screen Last Done: 02/13/25 19:28
Discharge Date and Time
Discharge Date/Time: 02/13/25 23:08
Print Language: [id number]
[2025-02-13] MEDS: ZOFRAN 4 MG IV (19:42)
[2025-02-13 19:51] LABS: % Basophils 0.3 % (0-2); % Immature Granulocytes 0.3 % (0-0.5); % Lymphocytes 27.3 % (20.5-51.1); % Neutrophils 64.1 % (42.2-75.2); Absolute Eosinophils 0.1 10^3/uL (0-0.7); Absolute Lymphocytes 1.6 10^3/uL (1.2-3.4); Absolute Monocytes 0.4 10^3/uL (0.1-0.6); Absolute Neutrophils 3.8 10^3/uL (1.4-6.5); Hematocrit 38.2 % (37.0-47.0); Hemoglobin 12.9 g/dL (12.0-16.0); Mean Corp Hgb Conc. 33.8 g/dL (33.0-37.0); Mean Corpuscular Hgb 28.9 pg (27.0-31.0); Mean Corpuscular Volume 85.5 fL (81.0-99.0); Mean Platelet Volume 10.2 fL (7.4-10.4); Nucleated Red Blood Cells % 0 %; Platelet Count 210 10^3/uL (130-400); Red Blood Cell Count 4.47 10^6/uL (4.20-5.40)
[2025-02-13 20:09] LABS: ALT (SGPT) 14 U/L (0-35); AST (SGOT) 20 U/L (14-36); Albumin 4.2 g/dl (3.5-5.0); Alkaline Phosphatase 93 U/L (38-126); Blood Urea Nitrogen 26 mg/dl (7-17); Calcium 9.1 mg/dl (8.4-10.2); Carbon Dioxide 24 mmol/L (22-30); Chloride 107 mmol/L (98-107); Estimated Creatinine Clearance 54 ml/min; Glucose 252 mg/dl (70-99); Potassium 3.6 mmol/L (3.5-5.1); Sodium 141 mmol/L (135-145); Total Bilirubin 0.5 mg/dl (0.2-1.3); Total Protein 6.7 g/dl (6.3-8.2); eGFR > 60.00
[2025-02-13 20:20] LABS: Troponin I < 0.012 ng/ml
== END 2025-02-13 23:08 | disposition home or self-care (01) ==
LOC: EMR 19:07
PROVIDERS: EMERGENCY PHYSICIAN Emergency Medicine; FAMILY PHYSICIAN Nurse Practitioner Family
DX: R55 Syncope and collapse (principal); F03.90 Unspecified dementia, unspecified severity, without behavioral disturbance, psychotic disturbance, mood disturbance, and anxiety
CPT/HCPCS: 99284; 96374; 70450; 80053; 83735; 84484; 85025; 93005